=== PATIENT | male | born 1980 | race Caucasian/White ===

== ENCOUNTER 2017-07-25 05:54 | Emergency (ER) | payer SELFPAY ==
[2017-07-25] MEDS ORDERED: Metoclopramide IV* 5 MG/ML 2 ML VIAL IV ONE (06:22)
[2017-07-25] MEDS ORDERED: Ketorolac INJ* 30 MG/ML 1 ML VIAL IV ONE (06:22)
[2017-07-25] MEDS: NS 0.9% 1000 ML* 2,000 ML IV ONE ×2 (06:43→07:19)
--- NOTE | 2017-07-25 07:03 | ED ---
Odin Tilley Angela, scribed for Ming Peacock MD on 07/25/17 at 0622 . Complex/Multi-Sys Presentation - HPI Summary HPI Summary: This pt is a 37 y/o male presenting to [facility] c/o nausea, vomiting, diarrhea x5 days. He describes diarrhea as liquid. Pt additionally notes influenza like symptoms, body aches, fever and lower back pain. He states he took Advil yesterday. He denies any PMHx. - History Of Current Complaint Chief Complaint: EDGeneral Hx Obtained From: Patient Onset/Duration: Lasting Days, Still Present Timing: Days Severity Currently: Moderate Location: Pain At: - low back Aggravating Factor(s): nothing Alleviating Factor(s): nothing Associated Signs And Symptoms: Positive: Nausea, Vomiting, Diarrhea, Back Pain - lower, Fever, Other - influenza like symptoms - Allergies/Home Medications Allergies/Adverse Reactions: Allergies Allergy/AdvReac Type Severity Reaction Status Date / Time No Known Allergies Allergy Verified 07/25/17 05:57 PMH/Surg Hx/FS Hx/Imm Hx Endocrine/Hematology History: Denies: Hx Diabetes Cardiovascular History: Denies: Hx Hypertension Infectious Disease History: No Infectious Disease History: Denies: Traveled Outside the [place] in Last 30 Days - Family History Known Family History: Positive: None - Social History Alcohol Use: None Substance Use Type: Reports: Marijuana Smoking Status (MU): Former Smoker Review of Systems Positive: Fever. Negative: Chills ENT: Other - influenza like symptoms Positive: Vomiting, Diarrhea, Nausea Musculoskeletal: Other - low back pain Positive: Myalgia All Other Systems Reviewed And Are Negative: Yes Physical Exam - Summary Physical Exam Summary: VITAL SIGNS: Reviewed. GENERAL: Patient is a well-developed and nourished male who is lying comfortable in the stretcher. Patient is not in any acute respiratory distress. HEAD AND FACE: No signs of trauma. No ecchymosis, hematomas or skull depressions. No sinus tenderness. EYES: PERRLA, EOMI x 2, No injected conjunctiva, no nystagmus. EARS: Hearing grossly intact. Ear canals and tympanic membranes are within normal limits. MOUTH: Oropharynx within normal limits. NECK: Supple, trachea is midline, no adenopathy, no JVD, no carotid bruit, no c- spine tenderness, neck with full ROM. CHEST: Symmetric, no tenderness at palpation LUNGS: Clear to auscultation bilaterally. No wheezing or crackles. CVS: Regular rate and rhythm, S1 and S2 present, no murmurs or gallops appreciated. ABDOMEN: Soft, non-tender. No signs of distention. No rebound no guarding, and no masses palpated. Bowel sounds are normal. EXTREMITIES: FROM in all major joints, no edema, no cyanosis or clubbing. NEURO: Alert and oriented x 3. No acute neurological deficits. Speech is normal and follows commands. SKIN: Dry and warm Triage Information Reviewed: Yes Vital Signs On Initial Exam: Initial Vitals Temp Pulse Resp BP Pulse Ox 98.8 F 96 18 110/72 96 07/25/17 05:55 07/25/17 05:55 07/25/17 05:55 07/25/17 05:55 07/25/17 05:55 Vital Signs Reviewed: Yes Diagnostics - Vital Signs Vital Signs Temp Pulse Resp BP Pulse Ox 07/25/17 05:55 98.8 F 96 18 110/72 96 - Laboratory Lab Statement: Any lab studies that have been ordered have been reviewed, and results considered in the medical decision making process. Complex Multi-Symp Course/Dx Assessment/Plan: This pt is a 37 y/o male presenting to [facility] c/o nausea, vomiting, diarrhea x5 days. He describes diarrhea as liquid. Pt additionally notes influenza like symptoms, body aches, fever and lower back pain. He states he took Advil yesterday. He denies any PMHx. In the ED course the pt was given IV fluids, Toradol and Reglan. Blood work was obtained. Pt will be signed out to Dr. Woods, pending disposition, awaiting lab results. - Diagnoses Provider Diagnoses: Gastroenteritis Discharge - Discharge Plan Condition: Stable Disposition: OTHER Discharge Disposition Comment: signed out to Dr. Woods, pending dispo, awaiting lab results. Referrals: No Primary Care Phys,NOPCP [Primary Care Provider] - The documentation as recorded by the Odin ortiz Angela accurately reflects the service I personally performed and the decisions made by me, Ming Peacock MD.
[2017-07-25 07:13] LABS: ABS Basophils 0 10^3/ul (0-0.2); ABS Eosinophils 0 10^3/ul (0-0.6); ABS Lymphocytes 0.9 10^3/ul (1.0-4.8); ABS Monocytes 0.6 10^3/ul (0-0.8); ABS Neutrophils 4.8 10^3/ul (1.5-7.7); ABS Nucleated RBC 0 10^3/ul; Eosinophil % 0.1 % (0-6); Hematocrit 42 % (42-52); Hemoglobin 15.1 g/dl (14.0-18.0); Lymphocyte % 14.6 % (25-47); Mean Corpuscular HGB Conc 36 g/dl (31-36); Mean Corpuscular Hemoglobin 31 pg (27-31); Mean Corpuscular Volume 86 fL (80-94); Mean Platelet Volume 9 um3 (7.4-10.4); Nucleated Red Blood Cells % 0; Platelet Count 168 10^3/ul (150-450); Red Blood Count 4.86 10^6/ul (4.0-5.4); Red Cell Distribution Width 13 % (10.5-15); White Blood Count 6.3 10^3/ul (3.5-10.8)
[2017-07-25 07:15] LABS: EGFR Non-African American 77.8 (>60)
[2017-07-25] MEDS ORDERED: Oseltamivir CAP* 75 MG CAP PO ONE (07:23)
[2017-07-25 08:47] VITALS: BP 116/57
--- NOTE | 2017-07-26 18:37 | ED ---
Madyson Tilley Thomas, scribed for Blaze Woods MD on 07/25/17 at 0800 . Progress - Progress Note Progress Note: The patient is a sign out from Dr. Peacock at shift change, pending test results. Test results were within normal limits except for a positive influenza, for which the patient was given Tamiflu. The patient will be discharged home. Condition is stable. Course/Dx - Diagnoses Provider Diagnoses: Influenza The documentation as recorded by the Madyson ortiz Thomas accurately reflects the service I personally performed and the decisions made by Chuck yin Walter, MD.
== END 2017-07-25 08:47 ==
LOC: ED 05:54
DX: K52.9 Noninfective gastroenteritis and colitis, unspecified (principal); J11.1 Influenza due to unidentified influenza virus with other respiratory manifestations; Z87.891 Personal history of nicotine dependence
CPT/HCPCS: 36415; 80053; 82150; 83690; 85025; 86140; 87502; 96374; 96375; 99282; A9270-GY; J1885; J2765